=== PATIENT | female | born 1965 | race Caucasian/White ===

== ENCOUNTER 2017-05-24 09:40 | Emergency (ER) | payer MEDICARE, OTHER ==
[~2017-05-24] VITALS: Ht 162.6 cm; Wt 50.0 kg
[~2017-05-24 09:40] MED LIST: DOXY100T PO; LIND1LOT7 TOP; Z.0.NO CURRENT MEDS
[2017-05-24 09:42] VITALS: BP 146/95; PULSE 101; RESP 18; TEMP 98.2; O2SAT 98
[2017-05-24] MEDS ORDERED: TYLE325T PO (10:00)
[2017-05-24] MEDS ORDERED: CYCL1TAB29 PO (10:00)
[2017-05-24 11:18] VITALS: BP 111/76; PULSE 80; RESP 17; O2SAT 98
[2017-05-24] MEDS ORDERED: MEDR4PAK PO (11:20)
[2017-05-24] MEDS ORDERED: ROBA500T PO (11:20)
--- NOTE | 2017-05-24 11:20 | PD ---
HPI Chief Complaint: Numbness/Tingling Time Seen by Provider: 11:18 Travel History International Travel<30 days: No Contact w/Intl Traveler<30days: No Traveled to known affect area: No History of Present Illness HPI 52 year-old female history of chronic neck pain presents the emergency department for evaluation of persistent neck pain, requesting a different medication and Flexeril which is what she has previously been prescribed. She states that this makes her stomach upset. He states that associated with her neck pain is numbness and tingling into her bilateral upper extremities, intermittently. She is currently not experiencing this. She states that this has been happening for "as long as she can remember." Denies any new injury. Denies any focal deficits or weakness. No chest tightness. She has no other symptoms to report. PFSH Past Medical History Arthritis: Yes (OA) COPD: Yes Medical other: Yes ([facility]) Tetanus Vaccination: > 5 Years Influenza Vaccination: No ?: Not Menopausal: Yes Tubal Ligation: Yes Social History Alcohol Use: No Tobacco Use: No (1 PPD) Substance Use: No Allergies-Medications (Allergen,Severity, Reaction): Coded Allergies: Penicillin (Verified Allergy, Mild, 05/24/17) Reported Meds & Prescriptions Reported Meds & Active Scripts Active Robaxin (Methocarbamol) 500 Mg Tab 500 Mg PO QID PRN Medrol Dosepak (Methylprednisolone) 4 Mg Dspk 4 Mg PO DIRECTED Per Pharmacist direction Reported Flexeril (Cyclobenzaprine HCl) 10 Mg Tab 10 Mg PO TID Tylenol (Acetaminophen) 325 Mg Tab 650 Mg PO TID PRN Review of Systems Except as stated in HPI: all other systems reviewed are Neg Physical Exam Narrative GENERAL: Thin female patient, in no acute distress SKIN: Focused skin assessment warm/dry. HEAD: Atraumatic. Normocephalic. EYES: Pupils equal and round. No scleral icterus. No injection or drainage. ENT: No nasal bleeding or discharge. Mucous membranes pink and moist. NECK: Trachea midline. No JVD. No cervical spine tenderness to palpation CARDIOVASCULAR: Regular rate and rhythm. No murmur appreciated. RESPIRATORY: No accessory muscle use. Clear to auscultation. Breath sounds equal bilaterally. GASTROINTESTINAL: Abdomen soft, non-tender, nondistended. Hepatic and splenic margins not palpable. MUSCULOSKELETAL: No obvious deformities. No clubbing. No cyanosis. No edema. NEUROLOGICAL: Awake and alert. No obvious cranial nerve deficits. Motor grossly within normal limits. Normal speech. Data Data Last Documented VS Vital Signs Date Time Temp Pulse Resp B/P Pulse Ox O2 Delivery O2 Flow Rate FiO2 05/24/17 11:18 80 17 111/76 98 Room Air 05/24/17 09:42 98.2 Orders Electrocardiogram (05/24/17 ) Ketorolac Inj (Toradol Inj) (05/24/17 11:30) Orphenadrine Inj (Norflex Inj) (05/24/17 11:30) [facility] Medical Decision Making Medical Screen Exam Complete: Yes Emergency Medical Condition: Yes Medical Record Reviewed: Yes Differential Diagnosis Cervical strain versus discogenic pain versus radiculopathy versus neuropathy Narrative Course 52-year-old female presents to the emergency department for evaluation of chronic neck pain. Patient has no new injury and no focal deficit. Based on her report of symptoms this is likely a radicular pain. Patient will be prescribed nonnarcotic pain control patient. She is encouraged to seek primary care evaluation. She agrees to return immediately with any acute worsening symptoms. Diagnosis Primary Impression: Chronic neck pain Additional Impression: Cervical radiculopathy Referrals: Primary Care Physician Patient Instructions: Cervical Radiculopathy (ED), General Instructions Additional Instructions: Ice and/or warm moist heat may help to alleviate symptoms Follow-up with your primary care provider Outpatient imaging may be warranted if symptoms persist Return immediately with any acute worsening of symptoms Med/Other Pt SpecificInfo: Prescription(s) given Scripts Methocarbamol (Robaxin)500 Mg [id number] Mg PO QID PRN (MUSCLE SPASM) #20 TAB Ref 0 Prov:Lynda See 05/24/17 Methylprednisolone Dosepak (Medrol Dosepak)4 Mg Dspk4 Mg PO DIRECTED #1 DSPK Ref 0 Per Pharmacist direction Prov:Lynda See 05/24/17 Disposition: 01 DISCHARGE HOME Condition: Stable Lynda See May 24, 2017 11:20
[2017-05-24] MEDS ORDERED: ORPHENADRINE INJ 60 MG/2 ML AMP IM ONE (11:30)
[2017-05-24] MEDS ORDERED: KETOROLAC TROMETHAMINE 60 MG/2 ML (IM) VIAL IM ONE (11:30)
--- NOTE | 2017-05-24 15:08 | EKG ---
Date Performed: 05/24/2017 Time Performed: 10:03:21 PTAGE: 52 years EKG: Sinus rhythm NORMAL ECG NO PREVIOUS TRACING DOCTOR: Vladimir Bolton Interpretating Date/Time 05/24/2017 15:06:44
== END 2017-05-24 12:26 | disposition home or self-care (01) ==
LOC: NEPE 09:40
DX: M54.12 Radiculopathy, cervical region (principal); G89.29 Other chronic pain; J44.9 Chronic obstructive pulmonary disease, unspecified; Z88.0 Allergy status to penicillin
CPT/HCPCS: 93005; 96372; 99284; J1885; J2360